=== PATIENT | female | born 1975 | race Two or more races ===

== ENCOUNTER 2022-10-25 04:45 | Day surgery (SDC) | payer OTHER ==
[2022-09-25 11:49] VITALS: BMI 35.7
[2022-10-25 12:56] VITALS: TEMP 97.5
[2022-10-25 13:55] VITALS: BP 123/62; PULSE 61; RESP 9
== END 2022-10-25 13:17 | disposition home or self-care (01) ==
LOC: JASU-ENDO 04:45
PROVIDERS: ATTEND Internal Medicine Gastroenterology
PROC: 0DJD8ZZ Inspection of Lower Intestinal Tract, Via Natural or Artificial Opening Endoscopic (ICD-10-PCS; principal; 2022-10-25 11:40)
DX: Z12.11 Encounter for screening for malignant neoplasm of colon (principal); K64.8 Other hemorrhoids; K59.89 Other specified functional intestinal disorders; K59.00 Constipation, unspecified